=== PATIENT | male | born 1985 | race Hispanic/Latino ===

== ENCOUNTER 2020-06-08 10:17 | Emergency (ER) | payer SELFPAY ==
[~2020-06-08] VITALS: Ht 180.3 cm; Wt 131.5 kg
[2020-06-08] MEDS ORDERED: AUGMENTIN 500-1 EACH PO (11:23)
[2020-06-08 11:28] VITALS: BP 133/85
== END 2020-06-08 11:28 | disposition home or self-care (01) ==
LOC: FSED 11:19
DX: J02.0 Streptococcal pharyngitis (principal); R50.9 Fever, unspecified; F17.210 Nicotine dependence, cigarettes, uncomplicated
CPT/HCPCS: 83518; 99283